=== PATIENT | female | born 1985 | race African-American/Black ===

== ENCOUNTER 2023-02-27 15:20 | Emergency (ER) | payer MEDICAID ==
[~2023-02-27] VITALS: Ht 175.3 cm; Wt 91.0 kg
[2023-02-27 15:29] VITALS: O2SAT 99
[2023-02-27 15:57] LABS: BASOPHILS % 0.8 % (0.0-2.0); EOSINOPHILS % 0.9 % (0.0-5.0); HEMATOCRIT. 33.3 % (36.0-48.0); HEMOGLOBIN. 11.3 g/dL (12.0-16.0); LYMPHOCYTES % 18.7 % (20.0-50.0); MEAN CORPUSCULAR HEMOGLOBIN 27.1 pg (28.0-32.0); MEAN PLATELET VOLUME 6.9 fl (7.4-10.4); MONOCYTES % 8.2 % (2.0-8.0); NEUTROPHILS % 71.4 % (40.0-76.0); PLATELET 301 x1000/uL (130-400); RED BLOOD CELL COUNT 4.16 mill/uL (4.2-5.4); RED CELL DISTRIBUTION WIDTH 17.5 % (11.6-14.6)
[2023-02-27 16:02] LABS: CHLORIDE 100 mEq/L (98-107)
[2023-02-27 16:06] LABS: CLARITY URINE CLEAR (CLEAR); COLOR URINE YELLOW (YELLOW); KETONES URINE NEGATIVE (NEGATIVE); LEUKOCYTE ESTERASE URINE TRACE (NEGATIVE); NITRITE URINE NEGATIVE (NEGATIVE); OCCULT BLOOD URINE TRACE (NEGATIVE); PH URINE 6.5 (4.5-8.0); PROTEIN URINE TRACE (NEGATIVE); SPECIFIC GRAVITY URINE 1.013 (1.005-1.030)
[2023-02-28 00:15] VITALS: BP 147/99
[2023-02-28] MEDS ORDERED: KETOROLAC 60MG/2ML VIAL IM ONE (00:15)
[2023-02-28] MEDS ORDERED: ACETAMINOPHEN 325MG TABLET PO ONE (00:15)
[2023-02-28] MEDS ORDERED: NAPR-1176 MT (01:52)
[2023-02-28] MEDS ORDERED: TOPUD MT (01:52)
[2023-02-28 02:33] VITALS: PULSE 88; RESP 18; TEMP 98.3
== END 2023-02-28 01:00 | disposition home or self-care (01) ==
LOC: ER 15:20
DX: O26.891 Other specified pregnancy related conditions, first trimester (principal); R10.2 Pelvic and perineal pain; Z3A.01 Less than 8 weeks gestation of pregnancy
CPT/HCPCS: 80053; 81003; 81025; 85025; 36415; 76830; 76856; 99285; 96372; J1885; Z7610